=== PATIENT | female | born 1970 | race American Indian/Alaskan Native ===

== ENCOUNTER 2017-03-18 17:45 | Emergency (ER) | payer MEDICAID ==
[2017-03-18 18:43] LABS: Basophils % (Auto) 0.9 % (0.0-1.8); Eosinophils % (Auto) 2.7 % (0.0-4.3); Hematocrit 38.4 % (30.3-42.9); Hemoglobin 12.8 gm/dl (10.1-14.3); Mean Corpuscular HGB Conc 33 % (30-34); Mean Corpuscular Hemoglobin 31 pg (28-32); Mean Corpuscular Volume 93 fl (79-97); Platelet Count 255 K/mm3 (140-440); Red Blood Count 4.13 M/mm3 (3.65-5.03); Red Cell Distribution Width 13.8 % (13.2-15.2); White Blood Count 5.8 K/mm3 (4.5-11.0)
[2017-03-18 19:05] LABS: Alanine Aminotransferase 11 units/L (7-56); Albumin 4.2 g/dL (3.9-5); Albumin/Globulin Ratio 1.4 %; Alkaline Phosphatase 52 units/L (35-129); Anion Gap 15 mmol/L; Blood Urea Nitrogen 12 mg/dL (7-17); Calcium 9.1 mg/dL (8.4-10.2); Carbon Dioxide 27 mmol/L (22-30); Chloride 100.2 mmol/L (98-107); Glucose 78 mg/dL (65-100); Lipase 43 units/L (13-60); Potassium 3.9 mmol/L (3.6-5.0); Sodium 138 mmol/L (137-145); Total Protein 7.2 g/dL (6.3-8.2)
[2017-03-18 19:42] LABS: Bilirubin,Urine NEG (Negative); Blood,Urine SM (Negative); Ketones,Urine NEG (Negative); Leukocyte Esterase,Urine SM (Negative); Mucus,Urine FEW /HPF; Nitrite,Urine NEG (Negative); Protein,Urine <15 mg/dL mg/dL (Negative); Urobilinogen,Urine < 2.0 mg/dL (<2.0)
[2017-03-18] MEDS ORDERED: TYLENOL PO ONE (20:56)
[2017-03-19 01:46] VITALS: BP 169/84
--- NOTE | 2017-03-19 02:35 | Emergency Department Report ---
ED Abdominal Pain HPI - General Chief Complaint: Abdominal Pain Stated Complaint: TOOTH ABSCESS/HEADACHE/ABD PAIN Time Seen by Provider: 03/19/17 00:57 Source: patient Mode of arrival: Ambulatory Limitations: No Limitations - History of Present Illness Initial Comments: 46-year-old female past medical history dental abscess currently on amoxicillin presents with complaint of epigastric abdominal pain. Patient states she's been on amoxicillin and has taken Motrin and hydrocodone Tylenol and Aleve over the last several days for her toothache. Denies any diarrhea no nausea no vomiting. Patient states she has had intermittent sensation of epigastric pain. Pain is currently 0 out of 10 patient is awake alert and oriented 3 not in acute distress state she is moving her bowels normally. Patient states she has been taking all of these medicines intermittently for approximately 4-5 days. Denies any bleeding from oral cavity or rectal bleeding no hematochezia or hematemesis suspected. Onset/Timin -: days(s) Location: epigastric Radiation: epigastric Severity: moderate Severity scale (0 -10): 4 Improves With: nothing Context: recent antibiotic use, other (use of multiple NSAIDs and pain medicines ) - Related Data Previous Rx's Medication Instructions Recorded Last Taken Type Butalb/Acetamin/Caff 50-325-40 1 each PO Q4H PRN #14 tablet 02/13/15 Unknown Rx [Fioricet] Bismuth Subsalicylate 262 mg PO QID PRN #1 bottle 03/19/17 Unknown Rx [Pepto-Bismol] Famotidine [Pepcid] 20 mg PO BID PRN #30 tablet 03/19/17 Unknown Rx Lansoprazole [Prevacid] 15 mg PO QDAY #14 cap 03/19/17 Unknown Rx Allergies Allergy/AdvReac Type Severity Reaction Status Date / Time No Known Allergies Allergy Unverified 09/13/13 13:36 ED Review of Systems ROS: Stated complaint: TOOTH ABSCESS/HEADACHE/ABD PAIN Other details as noted in HPI Constitutional: denies: chills, fever Eyes: denies: eye pain, eye discharge, vision change ENT: dental pain (patient on amoxicillin hydrocodone and Aleve for dental pain for treatment for dental abscess with dentist). denies: ear pain, throat pain Respiratory: denies: cough, shortness of breath, wheezing Cardiovascular: denies: chest pain, palpitations Endocrine: no symptoms reported Gastrointestinal: abdominal pain. denies: nausea, diarrhea Genitourinary: denies: urgency, dysuria, discharge Musculoskeletal: denies: back pain, joint swelling, arthralgia Skin: denies: rash, lesions Neurological: denies: headache, weakness, paresthesias Psychiatric: denies: anxiety, depression Hematological/Lymphatic: denies: easy bleeding, easy bruising ED Past Medical Hx - Past Medical History Previous Medical History?: Yes Hx Headaches / Migraines: Yes - Surgical History Past Surgical History?: No - Social History Smoking Status: Never Smoker - Medications Home Medications: Home Medications Medication Instructions Recorded Confirmed Last Taken Type Butalb/Acetamin/Caff 50-325-40 1 each PO Q4H PRN #14 tablet 02/13/15 Unknown Rx [Fioricet] Bismuth Subsalicylate 262 mg PO QID PRN #1 bottle 03/19/17 Unknown Rx [Pepto-Bismol] Famotidine [Pepcid] 20 mg PO BID PRN #30 tablet 03/19/17 Unknown Rx Lansoprazole [Prevacid] 15 mg PO QDAY #14 cap 03/19/17 Unknown Rx ED Physical Exam - General Limitations: No Limitations General appearance: alert, in no apparent distress - Head Head exam: Present: atraumatic, normocephalic - Eye Eye exam: Present: normal appearance, PERRL, EOMI - ENT ENT exam: Present: mucous membranes moist - Neck Neck exam: Present: normal inspection, full ROM - Respiratory Respiratory exam: Present: normal lung sounds bilaterally. Absent: respiratory distress - Cardiovascular Cardiovascular Exam: Present: regular rate, normal rhythm. Absent: systolic murmur, diastolic murmur, rubs, gallop - GI/Abdominal GI/Abdominal exam: Present: soft (abdomen is soft all 4 quadrants nontender nondistended no medical tenderness at McBurney's point no pain in right upper quadrant no Bingham sign no periumbilical tenderness pain is in epigastric region intermittent only slightly worse after eating), normal bowel sounds - Extremities Exam Extremities exam: Present: normal inspection - Back Exam Back exam: Present: normal inspection - Neurological Exam Neurological exam: Present: alert, oriented X3 - Psychiatric Psychiatric exam: Present: normal affect, normal mood - Skin Skin exam: Present: warm, dry, intact, normal color. Absent: rash ED Course Vital Signs 03/18/17 03/18/17 03/19/17 18:20 20:52 00:30 Temperature 98.4 F 98.6 F Pulse Rate 67 63 66 Respiratory 18 20 18 Rate Blood Pressure 148/93 137/101 Blood Pressure 133/80 [Left] O2 Sat by Pulse 100 99 Oximetry 03/19/17 01:45 Temperature Pulse Rate 91 H Respiratory 18 Rate Blood Pressure Blood Pressure 169/84 [Left] O2 Sat by Pulse 98 Oximetry ED Medical Decision Making - Lab Data Result diagrams: 03/18/17 18:30 03/18/17 18:30 - Medical Decision Making A/P: Gastritis, GERD 1-as patient has been taking multiple pain medicines over the last several days likely has medication-induced gastritis. Patient does not appear in any acute distress denies any chest pain no nausea no vomiting no difficulty defecating without difficulty passing gas pain currently 0 out of 10 and has virtually no reproducible tenderness on palpation of abdomen. No signs clinically of bowel obstruction 2-trial of antacids, Pepcid, Nexium, Pepto-Bismol 3-I advised patient to limit her use of multiple pain medicines and to strictly used Tylenol for now when necessary only if she experiences significant dental pain. Advised patient to return to the ED for any fevers chills nausea vomiting difficulty defecating difficulty passing gas any chest pain or shortness of breath. 4- labs unremarkable Critical care attestation.: If time is entered above; I have spent that time in minutes in the direct care of this critically ill patient, excluding procedure time. ED Disposition Clinical Impression: Gastritis Qualifiers: Gastritis type: other gastritis Chronicity: acute Gastritis bleeding: without bleeding Qualified Code(s): K29.00 - Acute gastritis without bleeding Disposition: DISCHARGED TO HOME OR SELFCARE Is pt being admited?: No Does the pt Need Aspirin: No Condition: Stable Instructions: Abdominal Pain (ED), Gastritis (ED), Diet for Ulcers and Gastritis (ED) Prescriptions: Bismuth Subsalicylate [Pepto-Bismol] 262 mg PO QID PRN #1 bottle PRN Reason: Indigestion Famotidine [Pepcid] 20 mg PO BID PRN #30 tablet PRN Reason: Indigestion Lansoprazole [Prevacid] 15 mg PO QDAY #14 cap Referrals: KATHRYN ZAMAN MD [Staff Physician] - 3-5 Days [facility] [Provider Group] - 3-5 Days Forms: Work/School Release Form(ED) Time of Disposition: 02:39
[2017-03-19] MEDS ORDERED: TYLENOL ONE (02:36)
[2017-03-19] MEDS ORDERED: TYLENOL PO ONE (02:40)
== END 2017-03-19 02:52 | disposition home or self-care (01) ==
LOC: ED 17:45
DX: K29.00 Acute gastritis without bleeding (principal); G43.909 Migraine, unspecified, not intractable, without status migrainosus
CPT/HCPCS: 36415; 80053; 81001; 83690; 85025; 99283

== ENCOUNTER 2017-11-06 06:00 | Emergency (ER) | payer SELFPAY ==
[2017-11-06 07:36] VITALS: BP 117/66
[2017-11-06 08:12] LABS: Alanine Aminotransferase 20 units/L (7-56); Albumin 4.1 g/dL (3.9-5); Albumin/Globulin Ratio 1.3 %; Alkaline Phosphatase 45 units/L (35-129); BUN/Creatinine Ratio 21; Blood Urea Nitrogen 15 mg/dL (7-17); Calcium 9.2 mg/dL (8.4-10.2); Carbon Dioxide 23 mmol/L (22-30); Glucose 84 mg/dL (65-100); Lipase 49 units/L (13-60); Total Protein 7.2 g/dL (6.3-8.2)
[2017-11-06 08:13] LABS: Anion Gap 17 mmol/L; Potassium 4.5 mmol/L (3.6-5.0); Sodium 137 mmol/L (137-145)
[2017-11-06 08:14] LABS: Bilirubin,Urine NEG (Negative); Blood,Urine NEG (Negative); Ketones,Urine NEG (Negative); Leukocyte Esterase,Urine TR (Negative); Nitrite,Urine NEG (Negative); Protein,Urine <15 mg/dL mg/dL (Negative); Urobilinogen,Urine < 2.0 mg/dL (<2.0)
[2017-11-06 08:21] LABS: Basophils % (Auto) 1.2 % (0.0-1.8); Eosinophils % (Auto) 2.4 % (0.0-4.3); Hematocrit 40.9 % (30.3-42.9); Hemoglobin 13.5 gm/dl (10.1-14.3); Mean Corpuscular HGB Conc 33 % (30-34); Mean Corpuscular Hemoglobin 30 pg (28-32); Mean Corpuscular Volume 92 fl (79-97); Platelet Count 232 K/mm3 (140-440); Red Blood Count 4.45 M/mm3 (3.65-5.03); Red Cell Distribution Width 13.4 % (13.2-15.2)
--- NOTE | 2017-11-06 12:01 | Emergency Department Report ---
ED General Adult HPI - General Chief complaint: Abdominal Pain Stated complaint: BLURRED VISION, FATIGUE, DIZZY, STOMACH ACHE Time Seen by Provider: 11/06/17 11:59 Source: patient Mode of arrival: Ambulatory Limitations: No Limitations - Related Data Previous Rx's Medication Instructions Recorded Last Taken Type Butalb/Acetamin/Caff 50-325-40 1 each PO Q4H PRN #14 tablet 02/13/15 Unknown Rx [Fioricet] Bismuth Subsalicylate 262 mg PO QID PRN #1 bottle 03/19/17 Unknown Rx [Pepto-Bismol] Famotidine [Pepcid] 20 mg PO BID PRN #30 tablet 03/19/17 Unknown Rx Lansoprazole [Prevacid] 15 mg PO QDAY #14 cap 03/19/17 Unknown Rx Allergies Allergy/AdvReac Type Severity Reaction Status Date / Time aspirin Allergy Swelling Verified 11/06/17 07:41 ED Review of Systems ROS: Stated complaint: BLURRED VISION, FATIGUE, DIZZY, STOMACH ACHE Other details as noted in HPI ED Past Medical Hx - Past Medical History Previous Medical History?: Yes Hx Headaches / Migraines: Yes - Surgical History Past Surgical History?: No - Social History Smoking Status: Never Smoker Substance Use Type: Non Opiate Pain - Medications Home Medications: Home Medications Medication Instructions Recorded Confirmed Last Taken Type Butalb/Acetamin/Caff 50-325-40 1 each PO Q4H PRN #14 tablet 02/13/15 Unknown Rx [Fioricet] Bismuth Subsalicylate 262 mg PO QID PRN #1 bottle 03/19/17 Unknown Rx [Pepto-Bismol] Famotidine [Pepcid] 20 mg PO BID PRN #30 tablet 03/19/17 Unknown Rx Lansoprazole [Prevacid] 15 mg PO QDAY #14 cap 03/19/17 Unknown Rx ED Physical Exam - General Limitations: No Limitations ED Course Vital Signs 11/06/17 07:31 Temperature 97.8 F Pulse Rate 62 Respiratory 18 Rate Blood Pressure 117/66 O2 Sat by Pulse 99 Oximetry ED Medical Decision Making - Lab Data Result diagrams: 11/06/17 07:39 11/06/17 07:39 Laboratory Results - last 24 hr 11/06/17 11/06/17 11/06/17 07:39 07:39 07:41 WBC 5.0 RBC 4.45 Hgb 13.5 Hct 40.9 MCV 92 MCH 30 MCHC 33 RDW 13.4 Plt Count 232 Lymph % (Auto) 43.7 H [place] % (Auto) 10.9 H Eos % (Auto) 2.4 Baso % (Auto) 1.2 Lymph # 2.2 [place] # 0.5 Eos # 0.1 Baso # 0.1 Seg Neutrophils % 41.8 Seg Neutrophils # 2.1 Sodium 137 Potassium 4.5 Chloride 102.0 Carbon Dioxide 23 Anion Gap 17 BUN 15 Creatinine 0.7 Estimated GFR > 60 BUN/Creatinine Ratio 21 Glucose 84 POC Glucose 81 Calcium 9.2 Total Bilirubin 0.30 AST 20 ALT 20 Alkaline Phosphatase 45 Total Protein 7.2 Albumin 4.1 Albumin/Globulin Ratio 1.3 Lipase 49 Urine Color Urine Turbidity Urine pH Ur Specific [place] Urine Protein Urine Glucose (UA) Urine Ketones Urine Blood Urine Nitrite Urine Bilirubin Urine Urobilinogen Ur Leukocyte Esterase Urine WBC (Auto) Urine RBC (Auto) U Epithel Cells (Auto) 11/06/17 07:50 WBC RBC Hgb Hct MCV MCH MCHC RDW Plt Count Lymph % (Auto) [place] % (Auto) Eos % (Auto) Baso % (Auto) Lymph # [place] # Eos # Baso # Seg Neutrophils % Seg Neutrophils # Sodium Potassium Chloride Carbon Dioxide Anion Gap BUN Creatinine Estimated GFR BUN/Creatinine Ratio Glucose POC Glucose Calcium Total Bilirubin AST ALT Alkaline Phosphatase Total Protein Albumin Albumin/Globulin Ratio Lipase Urine Color Yellow Urine Turbidity Clear Urine pH 6.0 Ur Specific [place] 1.018 Urine Protein <15 mg/dl Urine Glucose (UA) Neg Urine Ketones Neg Urine Blood Neg Urine Nitrite Neg Urine Bilirubin Neg Urine Urobilinogen < 2.0 Ur Leukocyte Esterase Tr Urine WBC (Auto) 4.0 Urine RBC (Auto) 6.0 U Epithel Cells (Auto) 2.0 Critical care attestation.: If time is entered above; I have spent that time in minutes in the direct care of this critically ill patient, excluding procedure time. ED Disposition Condition: Stable Instructions: Abdominal Pain (ED) Referrals: PRIMARY CARE, [Primary Care Provider] - 3-5 Days
--- NOTE | 2017-11-06 12:34 | ED Elopement Review ---
ED Pt Elopement review - Results review Lab results: Laboratory Tests 11/06/17 11/06/17 11/06/17 07:39 07:39 07:41 WBC 5.0 RBC 4.45 Hgb 13.5 Hct 40.9 MCV 92 MCH 30 MCHC 33 RDW 13.4 Plt Count 232 Lymph % (Auto) 43.7 H [place] % (Auto) 10.9 H Eos % (Auto) 2.4 Baso % (Auto) 1.2 Lymph # 2.2 [place] # 0.5 Eos # 0.1 Baso # 0.1 Seg Neutrophils % 41.8 Seg Neutrophils # 2.1 Sodium 137 Potassium 4.5 Chloride 102.0 Carbon Dioxide 23 Anion Gap 17 BUN 15 Creatinine 0.7 Estimated GFR > 60 BUN/Creatinine Ratio 21 Glucose 84 POC Glucose 81 Calcium 9.2 Total Bilirubin 0.30 AST 20 ALT 20 Alkaline Phosphatase 45 Total Protein 7.2 Albumin 4.1 Albumin/Globulin Ratio 1.3 Lipase 49 Urine Color Urine Turbidity Urine pH Ur Specific [place] Urine Protein Urine Glucose (UA) Urine Ketones Urine Blood Urine Nitrite Urine Bilirubin Urine Urobilinogen Ur Leukocyte Esterase Urine WBC (Auto) Urine RBC (Auto) U Epithel Cells (Auto) 11/06/17 07:50 WBC RBC Hgb Hct MCV MCH MCHC RDW Plt Count Lymph % (Auto) [place] % (Auto) Eos % (Auto) Baso % (Auto) Lymph # [place] # Eos # Baso # Seg Neutrophils % Seg Neutrophils # Sodium Potassium Chloride Carbon Dioxide Anion Gap BUN Creatinine Estimated GFR BUN/Creatinine Ratio Glucose POC Glucose Calcium Total Bilirubin AST ALT Alkaline Phosphatase Total Protein Albumin Albumin/Globulin Ratio Lipase Urine Color Yellow Urine Turbidity Clear Urine pH 6.0 Ur Specific [place] 1.018 Urine Protein <15 mg/dl Urine Glucose (UA) Neg Urine Ketones Neg Urine Blood Neg Urine Nitrite Neg Urine Bilirubin Neg Urine Urobilinogen < 2.0 Ur Leukocyte Esterase Tr Urine WBC (Auto) 4.0 Urine RBC (Auto) 6.0 U Epithel Cells (Auto) 2.0 - Call Back decision Pt Call Back Decision: No action required
== END 2017-11-06 12:57 | disposition left against medical advice (07) ==
LOC: ED 06:00
DX: H53.8 Other visual disturbances (principal); Z53.21 Procedure and treatment not carried out due to patient leaving prior to being seen by health care provider
CPT/HCPCS: 36415; 80053; 81001; 82962; 83690; 85025

== ENCOUNTER 2018-07-20 02:20 | Emergency (ER) | payer OTHER ==
[2018-07-20 02:42] VITALS: BP 119/70
== END 2018-07-20 10:08 | disposition left against medical advice (07) ==
LOC: ED 02:20
DX: T16.9XXA Foreign body in ear, unspecified ear, initial encounter (principal); Z53.21 Procedure and treatment not carried out due to patient leaving prior to being seen by health care provider

== ENCOUNTER 2021-09-06 17:44 | Emergency (ER) | payer SELFPAY ==
[2021-09-06 18:00] VITALS: BP 108/71
[2021-09-06] MEDS ORDERED: SODIUM CHLORIDE 0.9% 1000 ML 1,000 ML IV ONE (18:15)
[2021-09-06] MEDS ORDERED: diphenhydrAMINE 50 MG/ML VIAL IV ONE (18:15)
[2021-09-06] MEDS ORDERED: METOCLOPRAMIDE 10 MG/2 ML INJ IV ONE (18:15)
--- NOTE | 2021-09-06 20:09 | Emergency Department Report ---
ED Headache HPI - General Chief Complaint: Headache Stated Complaint: HEADACHE,BLURRY VISION,HBP Time Seen by Provider: 09/06/21 18:07 Source: patient, RN notes reviewed Exam Limitations: no limitations - History of Present Illness Initial Comments: This is a 50-year-old female nontoxic, well nourished in appearance, no acute signs of distress presents to the ED with c/o of acute on chronic headache. Patient describes headache as diffuse with level of 8 out of 10. Patient denies thunderclap headache. Patient denies any radiation of pain. Patient denies any head trauma. Patient denies any visual changes. Patient stated also had some blurry vision but denies any symptoms currently. Patient denies worse headache. Patient that has been taking [id number] medication with no significant relief. Patient stated that darkness makes headache better and bright lights make the headache worse. Patient denies any numbness, tingling, fever, chills, nausea, vomiting, chest pain, shortness of breath, stiff neck. Patient denies facial drooping or one sided weakness. Patient denies any radiation of pain. Patient stated allergies to aspirin. Past medical history includes migraine headaches. Timing/Duration: episodic Quality: mild Recent Head Trauma: occasional headaches Associated Symptoms: denies symptoms. denies: confusion, fatigue, facial pain, fever/chills, flushing, loss of consciousness, nausea/vomiting, nasal congestion, nasal drainage, numbness in legs/feet, rash, seizures, sinus infection, stiff neck, vision changes, weakness Allergies/Adverse Reactions: Allergies aspirin Allergy (Verified 11/06/17 07:41) Swelling Home Medications: Ambulatory Orders Butalb/Acetamin/Caff 50-325-40 [Fioricet] 1 each PO Q4H PRN #14 tablet 02/13/15 Bismuth Subsalicylate [Pepto-Bismol] 262 mg PO QID PRN #1 bottle 03/19/17 Famotidine [Pepcid] 20 mg PO BID PRN #30 tablet 03/19/17 Lansoprazole [Prevacid] 15 mg PO QDAY #14 cap 03/19/17 Butalb/Acetaminophen/Caffeine [Fioricet 50-300-40 mg CAP] 1 cap PO Q8HR PRN #12 cap 09/06/21 ED Review of Systems ROS: Stated complaint: HEADACHE,BLURRY VISION,HBP Other details as noted in HPI Comment: All other systems reviewed and negative Constitutional: denies: chills, fever Eyes: denies: eye pain, eye discharge, vision change ENT: denies: ear pain, throat pain Respiratory: denies: cough, shortness of breath, wheezing Cardiovascular: denies: chest pain, palpitations Endocrine: no symptoms reported Gastrointestinal: denies: abdominal pain, nausea, diarrhea Genitourinary: denies: urgency, dysuria, discharge Musculoskeletal: denies: back pain, joint swelling, arthralgia Skin: denies: rash, lesions Neurological: headache. denies: weakness, numbness, paresthesias, confusion, abnormal gait, vertigo Psychiatric: denies: anxiety, depression Hematological/Lymphatic: denies: easy bleeding, easy bruising ED Past Medical Hx - Past Medical History Previous Medical History?: Yes Hx Headaches / Migraines: Yes - Surgical History Past Surgical History?: No - Social History Smoking Status: Never Smoker Substance Use Type: None - Medications Home Medications: Home Medications Medication Instructions Recorded Confirmed Last Taken Type Butalb/Acetamin/Caff 50-325-40 1 each PO Q4H PRN #14 tablet 02/13/15 Unknown Rx [Fioricet] Bismuth Subsalicylate 262 mg PO QID PRN #1 bottle 03/19/17 Unknown Rx [Pepto-Bismol] Famotidine [Pepcid] 20 mg PO BID PRN #30 tablet 03/19/17 Unknown Rx Lansoprazole [Prevacid] 15 mg PO QDAY #14 cap 03/19/17 Unknown Rx Butalb/Acetaminophen/Caffeine 1 cap PO Q8HR PRN #12 cap 09/06/21 Unknown Rx [Fioricet 50-300-40 mg CAP] ED Physical Exam - General Limitations: No Limitations General appearance: alert, in no apparent distress - Head Head exam: Present: atraumatic, normocephalic - Eye Eye exam: Present: normal appearance, PERRL, EOMI - ENT ENT exam: Present: normal exam, normal orophraynx - Neck Neck exam: Present: normal inspection, full ROM. Absent: lymphadenopathy - Respiratory Respiratory exam: Absent: respiratory distress - Cardiovascular Cardiovascular Exam: Present: regular rate - Extremities Exam Extremities exam: Present: normal inspection, full ROM, normal capillary refill. Absent: tenderness - Back Exam Back exam: Present: normal inspection, full ROM. Absent: tenderness, CVA tenderness (R), CVA tenderness (L), muscle spasm, paraspinal tenderness, vertebral tenderness, rash noted - Neurological Exam Neurological exam: Present: alert, oriented X3, normal gait - Expanded Neurological Exam Expanded Patient oriented to: Present: person, place, time Cranial nerves: EOM's Intact: Normal, Facial Sensation: Normal Cerebellar function: Finger to Nose: Normal Upper motor neuron: Pronator Drift: Normal, Sensory Extinction: Normal Motor strength exam: RUE: 5, LUE: 5, RLE: 5, LLE: 5 Best Eye Response ([place]): (4) open spontaneously Best Motor Response ([place]): (6) obeys commands Best Verbal Response ([place]): (5) oriented Sandro Total: 15 - Psychiatric Psychiatric exam: Present: normal affect, normal mood - Skin Skin exam: Present: warm, dry, intact, normal color. Absent: rash ED Course Vital Signs 09/06/21 09/06/21 17:56 18:03 Temperature 99.1 F 99.1 F Pulse Rate 74 74 Respiratory 20 20 Rate Blood Pressure 108/71 Blood Pressure 108/71 [Right] O2 Sat by Pulse 99 99 Oximetry - Reevaluation(s) Reevaluation #1: 09/06/21 20:09 Patient is speaking in full sentences with no signs of distress noted. ED Medical Decision Making - Radiology Data CT HEAD WITHOUT CONTRAST INDICATION: Patient complains of a headache TECHNIQUE: All CT scans at this location are performed using CT dose reduction for ALARA by means of automated exposure control. COMPARISON: None available. FINDINGS: BRAIN: Mild motion artifact is seen. No hemorrhage or mass effect are seen. No evidence of acute infarction is noted. ORBITS: Normal as visualized. SOFT TISSUES OF HEAD: Normal. CALVARIUM: Normal. VISUALIZED PARANASAL SINUSES AND MASTOID AIR CELLS: Clear. ADDITIONAL FINDINGS: None. IMPRESSION: No acute intracranial abnormality. Signer Name: Hussein Judd MD Signed: 09/06/2021 8:20 PM Workstation Name: [id number] - Medical Decision Making This is a 50-year-old female that presents with headache. Patient is stable and was examined by me. Patient is neurologically stable. Patient is notified of the CT results with no questions noted by the patient. There is no stiff neck or neck pain. Vital signs are stable. Patient is afebrile. Patient received Benadryl, Reglan, and 1 L of normal saline which the patient stated that headache has subsided and resolved. Patient was instructed not to operate any machinery after discharged due to drowsiness of Benadryl. Patient stated that a family member will drive patient home. Patient is discharged with Fioricet. Patient was referred to Follow-up with a primary care/neurologist doctor in 3-5 days or if symptoms worsen and continue return to emergency room as soon as possible. At time of discharge, the patient does not seem toxic or ill in appearance. No acute signs of distress noted. Patient agrees to discharge treatment plan of care. No further questions noted by the patient. Critical care attestation.: If time is entered above; I have spent that time in minutes in the direct care of this critically ill patient, excluding procedure time. ED Disposition Clinical Impression: Headache Qualifiers: Headache type: unspecified Headache chronicity pattern: episodic headache Intractability: not intractable Qualified Code(s): R51.9 - Headache, unspecified Disposition: 01 HOME / SELF CARE / HOMELESS Is pt being admited?: No Does the pt Need Aspirin: No Condition: Stable Instructions: Acetaminophen; Butalbital; Caffeine tablets or capsules, Migraine Headache Additional Instructions: Follow-up with a primary care and orthopedic doctor in 3-5 days or if symptoms worsen and continue return to emergency room as soon as possible. Prescriptions: Butalb/Acetaminophen/Caffeine [Fioricet 50-300-40 mg CAP] 1 cap PO Q8HR PRN #12 cap PRN Reason: Headache Referrals: PRIMARY MD KYLE [Referring] - 3-5 Days DELVIN ALBERTO MD [Staff Physician] - 3-5 Days Forms: Work/School Release Form(ED) Time of Disposition: 21:24
--- NOTE | 2021-09-06 21:24 | Cat Scan Report ---
CT HEAD WITHOUT CONTRAST INDICATION: Patient complains of a headache TECHNIQUE: All CT scans at this location are performed using CT dose reduction for ALARA by means of automated exposure control. COMPARISON: None available. FINDINGS: BRAIN: Mild motion artifact is seen. No hemorrhage or mass effect are seen. No evidence of acute infa rction is noted. ORBITS: Normal as visualized. SOFT TISSUES OF HEAD: Normal. CALVARIUM: Normal. VISUALIZED PARANASAL SINUSES AND MASTOID AIR CELLS: Clear. ADDITIONAL FINDINGS: None. IMPRESSION: No acute intracranial abnormality. Signer Name: Hussein Judd MD Signed: 09/06/2021 9:20 PM Workstation Name: [id number]
== END 2021-09-06 21:50 | disposition home or self-care (01) ==
LOC: ED 17:44
DX: G43.909 Migraine, unspecified, not intractable, without status migrainosus (principal); Z88.6 Allergy status to analgesic agent; Z79.899 Other long term (current) drug therapy
CPT/HCPCS: 70450; 96361; 96374; 96375; 99283; J1200; J2765; J7030

== ENCOUNTER 2021-09-11 10:25 | Emergency (ER) | payer SELFPAY ==
[2021-09-11] MEDS ORDERED: ACETAMINOPHEN 500 MG TAB PO ONE (12:30)
[2021-09-11] MEDS ORDERED: LIDOCAINE (4%) 40 MG/ML TOPICAL SOLN 50 ML BOTTLE TP ONE (12:30)
[2021-09-11] MEDS ORDERED: METOCLOPRAMIDE 10 MG TAB PO ONE (12:30)
--- NOTE | 2021-09-11 12:31 | Emergency Department Report ---
ED General Adult HPI - General Chief complaint: Pain General Stated complaint: Headache, intermittent shortness of breath, intermittent urinary symptoms, left flank PUI?: No Time Seen by Provider: 09/11/21 12:29 Source: patient, RN notes reviewed, old records reviewed Mode of arrival: Stretcher Limitations: No Limitations - History of Present Illness Initial comments: The patient was evaluated in the emergency department for symptoms described in the history of present illness. He/she was evaluated in the context of the [facility] COVID-19 pandemic, which necessitated consideration that the patient might be at risk for infection with the virus that causes COVID-19. Institutional protocols and algorithms that pertain to the evaluation of patients at risk for COVID-19 are in a state of rapid change based on information released by regulatory bodies including the CDC and federal and state organizations. These policies and algorithms were followed during the patient's care in the emergency department. Please note that these policies, procedures and recommendations changed on a rapid basis. During the history and physical examination, I am PALOMA Goins The patient is a 50-year-old female. She is not known to myself previously. 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 She moved here from [place] approximately 1 year ago. She does not have a local primary care doctor. She tells me that she does not take routine prescription medications. She tells me she does not have long-term chronic formally diagnosed medical conditions. The patient states that she is not COVID-19 vaccinated. The patient presents to the ER with a few complaints today. Her first complaint is headache. The headache is frontal. The headache is intermittent over the past 2 weeks. The headache is worse at night, and worse in the morning. The headache is not sudden or thunderclap in nature. The headache is not maximal in intensity. The headache is not the worst headache of her life. The patient denies recent trauma, motor vehicle accident, and chiropractic manipulation. The patient wears glasses and contact lenses. The patient denies ocular pain, and traumatic change/loss of vision. She denies neck pain, chest pain, abdominal pain, nausea, vomiting, diaphoresis, leg pain, leg swelling, immobilization, , oral contraceptive use, DVT and pulmonary embolism risk factors. The patient reports poor sleep hygiene, and typically gets 4 hours of sleep per night. The patient endorses a secondary complaint of shortness of breath. The shortness of breath is not exertional. The shortness of breath is worse in the morning and worse at night. The patient denies a personal/family history of DVT, PE/CAD, hypercoagulable state. The patient also endorses a complaint of nontraumatic left paralumbar and left flank pain. She thought that she had some urinary discomfort, but it is now resolved. -: Gradual, week(s) Location: head, left (Left flank, left paralumbar) Radiation: non-radiation Quality: aching Consistency: intermittent Improves with: other Worsens with: other - Related Data Previous Rx's Medication Instructions Recorded Last Taken Type Metoclopramide [Reglan] 10 mg PO QID PRN #30 tablet 09/11/21 Unknown Rx Allergies Allergy/AdvReac Type Severity Reaction Status Date / Time aspirin Allergy Swelling Verified 11/06/17 07:41 ED Review of Systems ROS: Stated complaint: SOB,LEFT LOWER BACK PAIN Other details as noted in HPI Constitutional: denies: fever, malaise, weakness Eyes: denies: eye discharge, vision change ENT: denies: epistaxis Respiratory: shortness of breath. denies: cough Cardiovascular: denies: chest pain Gastrointestinal: denies: abdominal pain Genitourinary: as per HPI Musculoskeletal: back pain Neurological: headache. denies: weakness, numbness, paresthesias Hematological/Lymphatic: denies: easy bleeding ED Past Medical Hx - Past Medical History Hx Headaches / Migraines: Yes - Social History Smoking Status: Never Smoker Substance Use Type: None - Medications Home Medications: Home Medications Medication Instructions Recorded Confirmed Last Taken Type Metoclopramide [Reglan] 10 mg PO QID PRN #30 tablet 09/11/21 Unknown Rx ED Physical Exam - General Limitations: No Limitations General appearance: alert, in no apparent distress - Head Head exam: Present: atraumatic, normocephalic - Eye Eye exam: Present: normal appearance, PERRL, EOMI, other (Visual acuity intact to finger counting, color perception, reading at a close distance). Absent: nystagmus - ENT ENT exam: Present: normal exam, normal orophraynx, mucous membranes moist, normal external ear exam - Neck Neck exam: Present: normal inspection, full ROM. Absent: tenderness, meningismus - Respiratory Respiratory exam: Present: normal lung sounds bilaterally. Absent: respiratory distress, wheezes, rales, rhonchi, stridor, decreased breath sounds - Cardiovascular Cardiovascular Exam: Present: regular rate, normal rhythm, normal heart sounds. Absent: bradycardia, tachycardia, irregular rhythm, systolic murmur, diastolic murmur, rubs, gallop - GI/Abdominal GI/Abdominal exam: Present: soft. Absent: distended, tenderness, guarding, rebound, rigid, pulsatile mass - Extremities Exam Extremities exam: Present: normal inspection, full ROM, other (2+ pulses noted in the bilateral upper and lower extremities. There is no palpable cord. negative Homans sign. Muscular compartments are soft. The pelvis is stable.). Absent: pedal edema, calf tenderness - Back Exam Back exam: Present: normal inspection, full ROM. Absent: tenderness, CVA tenderness (R), CVA tenderness (L), paraspinal tenderness, vertebral tenderness - Neurological Exam Neurological exam: Present: alert, oriented X3, normal gait, other (There is no facial droop. The tongue is midline. Extraocular movements are intact bilaterally. There is 5 out of 5 strength in bilateral upper and lower extremities. Sensation is intact to light touch bilateral upper and lower extremities. There is no past-pointing. There is no pronator drift.). Absent: motor sensory deficit - Psychiatric Psychiatric exam: Present: normal affect, normal mood - Skin Skin exam: Present: warm, dry, intact, normal color. Absent: rash ED Course Vital Signs 09/11/21 09/11/21 09/11/21 12:02 12:29 12:30 Temperature 98.4 F Pulse Rate 71 Respiratory 14 Rate Blood Pressure 133/80 133/80 131/78 O2 Sat by Pulse 99 100 99 Oximetry 09/11/21 09/11/21 09/11/21 13:00 14:00 14:16 Temperature Pulse Rate 70 62 57 L Respiratory 19 15 17 Rate Blood Pressure 131/78 122/70 135/82 O2 Sat by Pulse 100 100 100 Oximetry 09/11/21 09/11/21 14:30 14:48 Temperature Pulse Rate 57 L Respiratory 15 16 Rate Blood Pressure 135/82 O2 Sat by Pulse 100 99 Oximetry - Reevaluation(s) Reevaluation #1: 09/11/21 15:09 On final reassessment, the patient is sitting comfortably on her stretcher, playing on her cellular phone, endorses resolution of symptoms, and she is in no acute distress. ED Medical Decision Making - Lab Data Result diagrams: 09/11/21 12:41 09/11/21 12:41 Vital Signs 09/11/21 09/11/21 09/11/21 12:02 12:29 12:30 Temperature 98.4 F Pulse Rate 71 Respiratory 14 Rate Blood Pressure 133/80 133/80 131/78 O2 Sat by Pulse 99 100 99 Oximetry Lab Results 09/11/21 09/11/21 09/11/21 Range/Units 12:41 12:41 12:41 WBC 4.1 L (4.5-11.0) K/mm3 RBC 4.27 (3.65-5.03) M/mm3 Hgb 12.9 (10.1-14.3) gm/dl Hct 39.9 (30.3-42.9) % MCV 93 (79-97) fl MCH 30 (28-32) pg MCHC 32 (30-34) % RDW 13.4 (13.2-15.2) % Plt Count 258 (140-440) K/mm3 Sodium 139 (137-145) mmol/L Potassium 4.6 (3.6-5.0) mmol/L Chloride 102.1 (98-107) mmol/L Carbon Dioxide 25 (22-30) mmol/L Anion Gap 17 mmol/L BUN 15 (7-17) mg/dL Creatinine 0.9 (0.6-1.2) mg/dL Estimated GFR > 60 ml/min BUN/Creatinine Ratio 17 % Glucose 82 (65-100) mg/dL Calcium 9.7 (8.4-10.2) mg/dL Magnesium 2.10 (1.7-2.3) mg/dL Troponin T < 0.010 (0.00-0.029) ng/mL TSH 1.090 (0.270-4.200) mlU/mL HCG, Quant (0-4) mIU/mL Urine Color (Yellow) Urine Turbidity (Clear) Urine pH (5.0-7.0) Ur Specific Hayes (1.003-1.030) Urine Protein (Negative) mg/dL Urine Glucose (UA) (Negative) mg/dL Urine Ketones (Negative) mg/dL Urine Blood (Negative) Urine Nitrite (Negative) Urine Bilirubin (Negative) Urine Urobilinogen (<2.0) mg/dL Ur Leukocyte Esterase (Negative) Urine WBC (Auto) (0.0-6.0) /HPF Urine RBC (Auto) (0.0-6.0) /HPF U Epithel Cells (Auto) (0-13.0) /HPF Urine Opiates Screen Urine Methadone Screen Ur Barbiturates Screen Ur Phencyclidine Scrn Ur Amphetamines Screen U Benzodiazepines Scrn Urine Cocaine Screen 09/11/21 09/11/21 09/11/21 Range/Units 12:41 Unknown Unknown WBC (4.5-11.0) K/mm3 RBC (3.65-5.03) M/mm3 Hgb (10.1-14.3) gm/dl Hct (30.3-42.9) % MCV (79-97) fl MCH (28-32) pg MCHC (30-34) % RDW (13.2-15.2) % Plt Count (140-440) K/mm3 Sodium (137-145) mmol/L Potassium (3.6-5.0) mmol/L Chloride (98-107) mmol/L Carbon Dioxide (22-30) mmol/L Anion Gap mmol/L BUN (7-17) mg/dL Creatinine (0.6-1.2) mg/dL Estimated GFR ml/min BUN/Creatinine Ratio % Glucose (65-100) mg/dL Calcium (8.4-10.2) mg/dL Magnesium (1.7-2.3) mg/dL Troponin T (0.00-0.029) ng/mL TSH (0.270-4.200) mlU/mL HCG, Quant 1.25 (0-4) mIU/mL Urine Color Straw (Yellow) Urine Turbidity Clear (Clear) Urine pH 7.0 (5.0-7.0) Ur Specific Hayes 1.008 (1.003-1.030) Urine Protein <15 mg/dl (Negative) mg/dL Urine Glucose (UA) Neg (Negative) mg/dL Urine Ketones Neg (Negative) mg/dL Urine Blood Neg (Negative) Urine Nitrite Neg (Negative) Urine Bilirubin Neg (Negative) Urine Urobilinogen < 2.0 (<2.0) mg/dL Ur Leukocyte Esterase Neg (Negative) Urine WBC (Auto) 1.0 (0.0-6.0) /HPF Urine RBC (Auto) 2.0 (0.0-6.0) /HPF U Epithel Cells (Auto) 1.0 (0-13.0) /HPF Urine Opiates Screen Negative Urine Methadone Screen Negative Ur Barbiturates Screen Negative Ur Phencyclidine Scrn Negative Ur Amphetamines Screen Negative U Benzodiazepines Scrn Negative Urine Cocaine Screen Negative - EKG Data -: EKG Interpreted by Nd EKG shows normal: sinus rhythm Rate: normal - EKG Data When compared to previous EKG there are: previous EKG unavailable 09/11/21 14:45 EKG is interpreted at 12: 27 Sinus rhythm, rate 61 bpm. Normal axis, normal intervals, minimal motion artifact. The EKG is not a STEMI. There is no prior EKG available for comparison. - Radiology Data Radiology results: pending, report reviewed, image reviewed CT HEAD WITHOUT CONTRAST INDICATION: Patient complains of a headache TECHNIQUE: All CT scans at this location are performed using CT dose reduction for ALARA by means of automated exposure control. COMPARISON: None available. FINDINGS: BRAIN: Mild motion artifact is seen. No hemorrhage or mass effect are seen. No evidence of acute infarction is noted. ORBITS: Normal as visualized. SOFT TISSUES OF HEAD: Normal. CALVARIUM: Normal. VISUALIZED PARANASAL SINUSES AND MASTOID AIR CELLS: Clear. ADDITIONAL FINDINGS: None. IMPRESSION: No acute intracranial abnormality. Signer Name: Hussein Judd MD Signed: 09/06/2021 8: 20 PM CHEST 2 VIEWS INDICATION / CLINICAL INFORMATION: dyspnea. COMPARISON: Chest x- ray 09/13/2013 FINDINGS: SUPPORT DEVICES: None. HEART / MEDIASTINUM: No significant abnormality. LUNGS / PLEURA: No significant pulmonary or pleural abnormality. No pneumothorax. ADDITIONAL FINDINGS: No significant additional findings. IMPRESSION: 1. No acute findings. Signer Name: Brad Duarte MD Signed: 09/11/2021 1:53 PM Workstation Name: [id number] - Medical Decision Making Differential diagnosis, including but not limited to: Migraine headache, tension headache, cluster headache, sleep deprivation, urinary tract infection, muscular pain, pneumonia, obstructive sleep apnea, COVID-19 Assessment and plan: 50-year-old female, who was afebrile, with reassuring vital signs, clinically sober with a GCS of 15, NIH score of 0, who is not currently tachycardic, tachypneic or hypoxic, who denies DVT and pulmonary embolism risk factors, who is low risk by Wells criteria for pulmonary embolism, with weeks of headache symptoms, recently had negative CT scan of the brain, weeks of intermittent shortness of breath, negative troponin x1, unremarkable chest x- ray, not hypoxic, laboratory studies nonactionable at this time. Patient was treated supportively and symptomatically for her multiple complaints. She felt improved. She is counseled to make certain to adhere to appropriate sleep hygiene. She will need to follow-up with an outpatient local primary care doctor, and/or sleep specialist. Patient observed in the emergency room for hours without clinical decompensation. All questions answered. Return precautions are reviewed. Critical care attestation.: If time is entered above; I have spent that time in minutes in the direct care of this critically ill patient, excluding procedure time. ED Disposition Clinical Impression: Headache, History of dyspnea, Left-sided back pain Disposition: HOME / SELF CARE / HOMELESS Is pt being admited?: No Does the pt Need Aspirin: No Condition: Good Additional Instructions: Patient may take Tylenol/acetaminophen, 650 mg by mouth, every 4-6 hours as needed for pain, maximum daily dose to not exceed 3 g per 24 hours. Please be aware that Fioricet medication also contains Tylenol. We recommend that the patient get at least 7 to 8 hours of uninterrupted sleep each night. Recommend that the patient avoid consumption of marijuana, cannabis, tobacco, alcohol products, and we also recommended the patient avoid consumption of caffeine, energy drinks and stimulants. Recommend that the patient follow-up with an outpatient primary care doctor within the next 2 weeks. Recommended the patient follow-up with an outpatient sleep specialist within the next [address] Syeda De La Torre Is a local primary care doctor. Dr. Orr is a local sleep specialist. Please return to the emergency room right away with new pain, worsened pain, migration of pain, projectile vomiting, change in mental status, confusion, inability to tolerate liquid feeds, new, worsened or different symptoms not present on the initial emergency room evaluation. Patient may take the Reglan medication as needed for headache, nausea and vomiting Prescriptions: Metoclopramide [Reglan] 10 mg PO QID PRN #30 tablet PRN Reason: Nausea Referrals: DELVIN DE LA TORRE MD [Staff Physician] - 3-5 Days SABAS ORR MD [Staff Physician] - 3-5 Days Heart Score - HEART Score History: Slightly suspicious EKG: Normal Age: 45-65 Risk factors: No known risk factors Troponin: < normal limit HEART Score: 1 - EKG Read Time Time EKG Completed: 12:27 EKG Read Time: 12:27 - Critical Actions Critical Actions: 0-3 pts:0.9-1.7%risk of adverse cardiac event.Candidate for discharge
[2021-09-11 13:04] LABS: Hematocrit 39.9 % (30.3-42.9); Hemoglobin 12.9 gm/dl (10.1-14.3); Mean Corpuscular HGB Conc 32 % (30-34); Mean Corpuscular Volume 93 fl (79-97); Platelet Count 258 K/mm3 (140-440); Red Blood Count 4.27 M/mm3 (3.65-5.03); Red Cell Distribution Width 13.4 % (13.2-15.2)
[2021-09-11 13:20] LABS: BUN/Creatinine Ratio 17; Blood Urea Nitrogen 15 mg/dL (7-17); Calcium 9.7 mg/dL (8.4-10.2); Hemolysis Index 6
[2021-09-11 13:52] LABS: Bilirubin,Urine NEG (Negative); Blood,Urine NEG (Negative); Color,Urine Straw (Yellow); Protein,Urine <15 mg/dL mg/dL (Negative); Urobilinogen,Urine < 2.0 mg/dL (<2.0)
[2021-09-11 14:01] LABS: Amphetamine Screen,Urine Negative; Benzodiazepines Screen,Urine Negative; Cocaine Screen,Urine Negative; Methadone Screen,Urine Negative; Opiate Screen,Urine Negative
[2021-09-11 14:20] LABS: Cannabinoid Screen,Urine Positive
[2021-09-11 14:55] LABS: INR 0.92 (0.87-1.13)
--- NOTE | 2021-09-11 14:57 | XRay Report ---
CHEST 2 VIEWS INDICATION / CLINICAL INFORMATION: dyspnea. COMPARISON: Chest x-ray 09/13/2013 FINDINGS: SUPPORT DEVICES: None. HEART / MEDIASTINUM: No significant abnormality. LUNGS / PLEURA: No significant pulmonary or pleural abnormality. No pneumothorax. ADDITIONAL FINDINGS: No significant additional findings. IMPRESSION: 1. No acute findings. Signer Name: Brad Duarte MD Signed: 09/11/2021 2:53 PM Workstation Name: [id number]
[2021-09-11 15:50] VITALS: BP 131/79
--- NOTE | 2021-09-15 18:37 | Electrocardiograph Report ---
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
== END 2021-09-11 15:49 | disposition home or self-care (01) ==
LOC: ED 10:25
DX: G43.909 Migraine, unspecified, not intractable, without status migrainosus (principal); M54.50 Low back pain, unspecified; R06.00 Dyspnea, unspecified; R79.1 Abnormal coagulation profile; Z79.899 Other long term (current) drug therapy
CPT/HCPCS: 36415; 71046; 80048; 80307; 81001; 83735; 84443; 84484; 84702; 85027; 85610; 87086; 93005; 99284

== ENCOUNTER 2022-07-17 16:13 | Emergency (ER) | payer SELFPAY ==
[2022-07-17] MEDS ORDERED: ACETAMINOPHEN 500 MG TAB PO ONE (20:25)
--- NOTE | 2022-07-17 23:42 | Emergency Department Report ---
ED General Adult HPI - General Chief complaint: Extremity Injury, Lower Stated complaint: HEADACHE,SWOLLEN FEET AND LEG Time Seen by Provider: 07/17/22 23:24 Source: patient Mode of arrival: Ambulatory Limitations: No Limitations - History of Present Illness Initial comments: Patient is a 51-year-old female with no past medical history who presents with swelling of her bilateral lower extremities and pain in the left thigh that is been going on for about a week. 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 She denies any injury. No chest pain or shortness of breath. No urinary symptoms or respiratory symptoms. She did have some diarrhea 2 days ago but no other symptoms except for an occasional headache that started around the same time as the swelling. Severity scale (0 -10): 6 Improves with: none Worsens with: none Associated Symptoms: denies: confusion, chest pain, cough, diaphoresis, fever/chills, loss of appetite, malaise, nausea/vomiting, rash, seizure, shor tness of breath, syncope, weakness Treatments Prior to Arrival: none - Related Data Previous Rx's Medication Instructions Recorded Last Taken Type Metoclopramide [Reglan] 10 mg PO QID PRN #30 tablet 09/11/21 Unknown Rx Allergies Allergy/AdvReac Type Severity Reaction Status Date / Time aspirin Allergy Swelling Verified 07/17/22 16:51 ED Review of Systems ROS: Stated complaint: HEADACHE,SWOLLEN FEET AND LEG Other details as noted in HPI Comment: All other systems reviewed and negative Constitutional: denies: chills, fever Eyes: denies: eye discharge, vision change ENT: denies: ear pain, throat pain, congestion Respiratory: no symptoms reported. denies: cough, orthopnea, shortness of breath, SOB with exertion, SOB at rest Cardiovascular: edema. denies: chest pain, palpitations, dyspnea on exertion, orthopnea, syncope, paroxysmal nocturnal dyspnea Endocrine: denies: intolerance to cold, intolerance to heat, unexplained weight gain, unexplained weight loss Gastrointestinal: denies: abdominal pain, nausea, vomiting, constipation, carlos temesis, melena, hematochezia Genitourinary: denies: urgency, dysuria, frequency, hematuria Musculoskeletal: denies: back pain Skin: denies: rash Neurological: denies: weakness, numbness, paresthesias, confusion, abnormal gait, vertigo Psychiatric: denies: anxiety, depression Hematological/Lymphatic: denies: easy bleeding, easy bruising ED Past Medical Hx - Past Medical History Hx Headaches / Migraines: Yes - Family History Family history: no significant - Social History Smoking Status: Never Smoker Substance Use Type: Alcohol (Occasional) - Medications Home Medications: Home Medications Medication Instructions Recorded Confirmed Last Taken Type Metoclopramide [Reglan] 10 mg PO QID PRN #30 tablet 09/11/21 Unknown Rx ED Physical Exam - General Limitations: No Limitations General appearance: alert, in no apparent distress - Head Head exam: Present: atraumatic, normocephalic - Eye Eye exam: Absent: scleral icterus, conjunctival injection, nystagmus - ENT ENT exam: Present: mucous membranes moist - Neck Neck exam: Present: normal inspection, full ROM. Absent: tenderness - Respiratory Respiratory exam: Present: normal lung sounds bilaterally. Absent: respiratory distress, wheezes, rales, rhonchi - Cardiovascular Cardiovascular Exam: Present: regular rate, normal rhythm, normal heart sounds - GI/Abdominal GI/Abdominal exam: Present: soft, normal bowel sounds. Absent: distended, tenderness, guarding - Extremities Exam Extremities exam: Present: normal capillary refill, pedal edema (2+ pitting). Absent: tenderness, joint swelling, calf tenderness - Back Exam Back exam: Absent: CVA tenderness (R), CVA tenderness (L) - Neurological Exam Neurological exam: Present: alert, oriented X3 - Psychiatric Psychiatric exam: Present: normal affect, normal mood - Skin Skin exam: Present: warm, dry, intact, normal color. Absent: rash ED Course Vital Signs 07/17/22 07/18/22 16:53 03:22 Temperature 98.4 F Pulse Rate 75 73 Respiratory 18 14 Rate Blood Pressure 127/65 130/67 [Right] O2 Sat by Pulse 98 100 Oximetry - Reevaluation(s) Reevaluation #1: 07/18/22 04:21 Patient remains unchanged throughout her emergency room stay. ED Medical Decision Making - Lab Data Result diagrams: 07/17/22 23:48 07/17/22 23:48 - EKG Data EKG shows normal: sinus rhythm Rate: bradycardia (57 with no ischemic changes) - Radiology Data Radiology results: report reviewed [facility] [address] [place] [address] Vascular Lab Report Signed Patient: DIONY ALAN MR#: [id number] : 1970 Acct:[id number] Age/Sex: 51 / F ADM Date: 07/17/22 Loc: ED Attending Dr: Ordering Physician: VIRGILIO LOPEZ Date of Service: 07/18/22 Procedure(s): VL venous duplex LE BILAT Accession Number(s): [id number] cc: VIRGILIO LOPEZ DUPLEX DOPPLER LOWER EXTREMITY VEINS, BILATERAL INDICATION / CLINICAL INFORMATION: LE edema and elevated Ddimer. TECHNIQUE: Duplex doppler imaging was performed through the veins of both lower extremities using venous compression and other maneuvers. COMPARISON: None available. FINDINGS: RIGHT COMMON FEMORAL VEIN: Negative. RIGHT FEMORAL VEIN: Negative. RIGHT POPLITEAL VEIN: Negative. RIGHT CALF VEINS: Negative. LEFT COMMON FEMORAL VEIN: Negative. LEFT FEMORAL VEIN: Negative. LEFT POPLITEAL VEIN: Negative. LEFT CALF VEINS: Negative. ADDITIONAL FINDINGS: None. IMPRESSION: 1. No sonographic evidence for DVT in either lower extremity. Signer Name: Ramon Garibay MD Signed: 07/18/2022 2:23 AM Workstation Name: [id number] Transcribed By: [place] Dictated By: Ramon Garibay MD Electronically Authenticated By: Ramon Garibay MD Signed Date/Time: 07/18/22222 DD/ 1 TD/TT: [address] [address] XRay Report Signed Patient: DIONY ALAN MR#: [id number] : 1970 Acct:[id number] Age/Sex: 51 / F ADM Date: 07/17/22 Loc: ED Attending Dr: Ordering Physician: VIRGILIO LOPEZ Date of Service: 07/17/22 Procedure(s): XR chest routine 2V Accession Number(s): [id number] cc: VIRGILIO LOPEZ Fluoro Time In Minutes: CHEST 2 VIEWS INDICATION / CLINICAL INFORMATION: edema fatigue. COMPARISON: 2 views of the chest from 09/11/2021. FINDINGS: SUPPORT DEVICES: None. HEART / MEDIASTINUM: No significant abnormality. LUNGS / PLEURA: No significant pulmonary abnormality. No significant pleural effusion. No pneumothorax. ADDITIONAL FINDINGS: No significant additional findings. IMPRESSION: 1. No acute abnormality of the chest. Signer Name: Ramon Garibay MD Signed: 07/18/2022 1:21 AM Workstation Name: [id number] Transcribed By: JAILYN Dictated By: Ramon Garibay MD Electronically Authenticated By: Ramon Garibay MD Signed Date/Time: 07/18/22120 DD/ 9 TD/TT: Print - Medical Decision Making Lower extremity edema likely due to patient's standing all day at work and venous insufficiency. However, mild hypothyroidism and white blood cell panel will need to be follow-up with her primary care doctor. I will provide her a referral for same. She verbalizes understanding of need for follow-up. - Differential Diagnosis Lower extremity edema. Venous insufficiency. CHF. Renal insufficiency. Critical care attestation.: If time is entered above; I have spent that time in minutes in the direct care of this critically ill patient, excluding procedure time. ED Disposition Clinical Impression: Lower extremity edema, 2+ pitting edema, Neutropenia Disposition: HOME / SELF CARE / HOMELESS Is pt being admited?: No Condition: Stable Instructions: Edema Additional Instructions: Tylenol as needed for pain. Follow-up with primary care doctor. Bring discharge instructions and all lab results. Referrals: DELVIN ALBERTO MD [Primary Care Provider] - 3-5 Days Forms: Work/School Release Form(ED) Time of Disposition: 04:26
[2022-07-18 00:12] LABS: Basophils % (Auto) 1.1 % (0.0-1.8); Eosinophils # (Auto) 0.2 K/mm3 (0.0-0.4); Eosinophils % (Auto) 5.2 % (0.0-4.3); Hematocrit 35.4 % (30.3-42.9); Hemoglobin 11.6 gm/dl (10.1-14.3); Lymphocytes % (Auto) 46.5 % (13.4-35.0); Mean Corpuscular HGB Conc 33 % (30-34); Mean Corpuscular Volume 95 fl (79-97); Monocytes # (Auto) 0.5 K/mm3 (0.0-0.8); Monocytes % (Auto) 11.3 % (0.0-7.3); Platelet Count 199 K/mm3 (140-440); Red Blood Count 3.73 M/mm3 (3.65-5.03); Red Cell Distribution Width 14.2 % (13.2-15.2)
[2022-07-18 00:28] LABS: Alanine Aminotransferase 15 units/L (7-56); Albumin 4.2 g/dL (3.9-5); BUN/Creatinine Ratio 24; Blood Urea Nitrogen 19 mg/dL (7-17); Calcium 8.8 mg/dL (8.4-10.2); Hemolysis Index 17
[2022-07-18 00:49] LABS: Bacteria,Urine 1+ /HPF (Negative)
[2022-07-18 00:54] LABS: Color,Urine Yellow (Yellow); HCG Qualitative,Urine Negative (Negative)
--- NOTE | 2022-07-18 01:26 | XRay Report ---
CHEST 2 VIEWS INDICATION / CLINICAL INFORMATION: edema fatigue. COMPARISON: 2 views of the chest from 09/11/2021. FINDINGS: SUPPORT DEVICES: None. HEART / MEDIASTINUM: No significant abnormality. LUNGS / PLEURA: No significant pulmonary abnormality. No significant pleural effusion. No pneumothora x. ADDITIONAL FINDINGS: No significant additional findings. IMPRESSION: 1. No acute abnormality of the chest. Signer Name: Ramon Garibay MD Signed: 07/18/2022 1:21 AM Workstation Name: [id number]
--- NOTE | 2022-07-18 02:27 | Vascular Lab Report ---
DUPLEX DOPPLER LOWER EXTREMITY VEINS, BILATERAL INDICATION / CLINICAL INFORMATION: LE edema and elevated Ddimer. TECHNIQUE: Duplex doppler imaging was performed through the veins of both lower extremities using cait ous compression and other maneuvers. COMPARISON: None available. FINDINGS: RIGHT COMMON FEMORAL VEIN: Negative. RIGHT FEMORAL VEIN: Negative. RIGHT POPLITEAL VEIN: Negative. RIGHT CALF VEINS: Negative. LEFT COMMON FEMORAL VEIN: Negative. LEFT FEMORAL VEIN: Negative. LEFT POPLITEAL VEIN: Negative. LEFT CALF VEINS: Negative. ADDITIONAL FINDINGS: None. IMPRESSION: 1. No sonographic evidence for DVT in either lower extremity. Signer Name: Ramon Garibay MD Signed: 07/18/2022 2:23 AM Workstation Name: [id number]
[2022-07-18 03:23] VITALS: BP 130/67
--- NOTE | 2022-07-19 16:54 | Electrocardiograph Report ---
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
== END 2022-07-18 06:20 | disposition home or self-care (01) ==
LOC: ED 16:13
DX: D70.9 Neutropenia, unspecified (principal); R60.0 Localized edema; G43.909 Migraine, unspecified, not intractable, without status migrainosus; Z72.89 Other problems related to lifestyle; Z79.899 Other long term (current) drug therapy; Z88.6 Allergy status to analgesic agent
CPT/HCPCS: 36415; 71046; 80053; 81001; 81025; 83880; 84443; 85025; 85379; 93005; 93970; 99284